=== PATIENT | male | born 1975 | race Caucasian/White ===

== ENCOUNTER 2016-07-02 09:31 | Emergency (ER) | payer OTHER ==
[2016-07-02 10:55] VITALS: BP 127/75
--- NOTE | 2016-07-02 12:06 | UC ---
FLU HPI - HPI Summary HPI Summary: FOUR DAYS OF FEVER COUGH AND BODY ACHES. FEVER 100.7. UNABLE TO SOUNDLY SLEEP. NO FLU SHOT. DAILY SMOKER. - History of Current Complaint Chief Complaint: UCGeneralIllness Stated Complaint: SORE THROAT COUGH FEVER Time Seen by Provider: 07/02/16 10:36 Hx Obtained From: Patient, Family/Male Model Onset/Duration: Sudden Onset, Lasting Days, Still Present Severity Currently: Moderate Severity Initially: Moderate Pain Intensity: 0 Pain Scale Used: 0-10 Numeric Associated Signs & Symptoms: Positive: Fever, Myalgia, Cough, Nasal Congestion. Negative: Sore Throat, Headache, Vomiting, Diarrhea - Allergy/Home Medications Allergies/Adverse Reactions: Allergies Allergy/AdvReac Type Severity Reaction Status Date / Time No Known Allergies Allergy Verified 07/02/16 10:55 PMH/Surg Hx/FS Hx/Imm Hx Previously Healthy: Yes Cardiovascular History Of: Reports: Cardiac Disorders - "enlarged right ventricle" Respiratory History Of: Reports: Asthma - in childhood - Surgical History Surgical History: None - Family History Known Family History: Positive: Cardiac Disease, Diabetes - Social History Occupation: Employed Full-time Lives: With Family Alcohol Use: Occasionally Substance Use Type: None Smoking Status (MU): Heavy Every Day Tobacco Smoker Amount Used/How Often: 1/2ppd Cessation Counseling: Counseled 3+Min - 10 Min Review of Systems Constitutional: Fever, Chills Skin: Negative Eyes: Negative ENT: Negative Respiratory: Cough Cardiovascular: Negative Gastrointestinal: Negative Genitourinary: Negative Motor: Negative Neurovascular: Negative Musculoskeletal: Myalgia Neurological: Negative Psychological: Negative All Other Systems Reviewed And Are Negative: Yes Physical Exam Triage Information Reviewed: Yes Appearance: Well-Appearing, No Pain Distress, Well-Nourished Vital Signs: Initial Vital Signs Temp 97.8 F 07/02/16 10:51 Pulse 76 07/02/16 10:51 Resp 20 07/02/16 10:51 BP 127/75 07/02/16 10:51 Pulse Ox 98 07/02/16 10:51 Vital Signs Reviewed: Yes Eye Exam: Normal Eyes: Positive: Conjunctiva Clear ENT: Positive: Normal ENT inspection, Hearing grossly normal, Pharynx normal, TM dull Dental Exam: Normal Neck exam: Normal Neck: Positive: Supple, Nontender, No Lymphadenopathy Respiratory Exam: Normal Respiratory: Positive: Chest non-tender, Lungs clear, Normal breath sounds, No respiratory distress, No accessory muscle use Cardiovascular Exam: Normal Cardiovascular: Positive: RRR, No Murmur, Pulses Normal Abdominal Exam: Normal Abdomen Description: Positive: Nontender, No Organomegaly Musculoskeletal Exam: Normal Musculoskeletal: Positive: Strength Intact, ROM Intact Neurological Exam: Normal Psychological Exam: Normal Psychological: Positive: Normal Response To Family Skin Exam: Normal Flu Course/Dx - Differential Dx/Diagnosis Differential Diagnosis/HQI/PQRI: Influenza, Upper Respiratory Infection Provider Diagnoses: INFLUENZA Discharge - Discharge Plan Condition: Stable Disposition: HOME Prescriptions: Benzonatate CAP* [Tessalon CAP*] 100 mg PO TID #15 cap Patient Education Materials: How to Stop Smoking (ED), Influenza (ED) Forms: *Work Release Referrals: Eric Arnold MD [Primary Care Provider] -
== END 2016-07-02 11:50 | disposition home or self-care (01) ==
LOC: UCEAST 09:31
DX: J11.1 Influenza due to unidentified influenza virus with other respiratory manifestations (principal); F17.210 Nicotine dependence, cigarettes, uncomplicated; Z71.6 Tobacco abuse counseling
CPT/HCPCS: 99212; G0463